=== PATIENT | male | born 1965 | race Caucasian/White ===

== ENCOUNTER → 2018-10-14 08:48 | Outpatient (CLI) | payer OTHER ==
[2015-11-15 12:40] VITALS: BMI 33.0
--- NOTE | ~2018-10-14 | EC ---
PATIENT:CARLENE LOPEZ DATE OF SERVICE: 10/14/18 SEX: M MEDICAL RECORD: [id number] DATE OF : 63 LOCATION:[facility] AGE OF PATIENT: 53 ADMISSION DATE: 10/14/18 REFERRING PHYSICIAN: INTERPRETING PHYSICIAN: CAMPOS GONZALES MD ECHOCARDIOGRAM REPORT ECHO CHARGES 4 ECHO COMPLETE Date: 10/14/18 CLINICAL DIAGNOSIS: H/O CAD/MS/HTN ECHOCARDIOGRAPHIC MEASUREMENTS (adult normal given) AC root (d.<3.7cm) 3.4 cm LV Septum d (<1.2 cm> 1.1 cm Valve Excursion 2.0 cm LV Septum (systole) 1.4 cm Left Atria (s.<4.0cm> 4.5 cm LVPW d(<1.2cm) 1.1 cm RV (d.<2.3cm) 2.4 cm LVPW (sytole) 1.6 cm LV diastole(<5.6CM) 5.6 cm MV E-F(>70mm/sec) cm LV systole 3.4 cm LVOT Diameter 2.1 cm MV exc.(>10mm) cm Est.ejection fraction (50-75%) % DOPPLER: LVIT cm/sec A 55.0 cm/sec E 63.0 cm/sec LA cm/sec RVSP 23.2 mmHg LVOT 74.0 cm/sec AOP1/2T m/s Asc. Ao 107 cm/sec RVOT 41.0 cm/sec RA cm/sec PA 76.0 cm/sec AV Gradient Peak 4.6 mmHg AV Mean 2.3 mmHg AV Area 2.4 cm MV Gradient Peak 3.1 mmHg MV Mean 1.5 mmHg MV Area cm COMMENTS: OP - HC [employer] Sales: 1 SHELLEY SOMERSET Extruder: 3 Dr. Ly TAPE# PACS Pericardial Effusion N DATE OF SERVICE: Adequate 2-D echo, color-flow and spectral Doppler, and M-mode. No LVH. LV internal dimensions are normal. Wall motion is normal. EF is greater than or equal to 55%. Aortic valve is tricuspid. No evidence of stenosis by Doppler interrogation. Left atrium is dilated at 4.5 cm. Mitral valve shows no prolapse. Mild MR. Right-sided chambers are grossly normal. Trace TR. ECHOCARDIOGRAM REPORT [id number] CARLENE LOPEZ Darell DURAND TRANSINT:[id number] Voice Confirmation ID: [id number] DOCUMENT ID: [id number] CAMPOS GONZALES MD CC: [id number] DICTATION DATE: 10/17/18 1342 BALLOON MAKER: 10/17/18 1433 DEP CLI 10/14/18 [place] [id number] [place] [id number]
[~2018-10-14 08:48] MED LIST: GLUCOPHAGE500 MG PO; PLAVIX75 MG PO
== END | disposition home or self-care (01) ==
LOC: D.HCCARDIO 08:48
PROVIDERS: ATTEND Internal Medicine Interventional Cardiology
DX: I25.10 Atherosclerotic heart disease of native coronary artery without angina pectoris (principal)

== ENCOUNTER → 2019-10-16 08:29 | Outpatient (CLI) | payer OTHER ==
[2015-11-15 12:40] VITALS: BMI 33.0
--- NOTE | 2019-10-18 10:52 | EC ---
PATIENT:CARLENE LOPEZ JR DATE OF SERVICE: 10/16/19 SEX: M MEDICAL RECORD: [id number] DATE OF : 63 LOCATION:[facility] AGE OF PATIENT: 54 ADMISSION DATE: 10/16/19 REFERRING PHYSICIAN: INTERPRETING PHYSICIAN: CAMPOS GONZALES MD ECHOCARDIOGRAM REPORT ECHO CHARGES 4 ECHO COMPLETE Date: 10/16/19 CLINICAL DIAGNOSIS: CAD/ASSESS EF AND VALVES ECHOCARDIOGRAPHIC MEASUREMENTS (adult normal given) AC root (d.<3.7cm) 3.5 cm LV Septum d (<1.2 cm> 1.2 cm Valve Excursion 1.8 cm LV Septum (systole) 1.3 cm Left Atria (s.<4.0cm> 3.4 cm LVPW d(<1.2cm) 1.4 cm RV (d.<2.3cm) 3.5 cm LVPW (sytole) 1.7 cm LV diastole(<5.6CM) 6.0 cm MV E-F(>70mm/sec) cm LV systole 4.7 cm LVOT Diameter 2.1 cm MV exc.(>10mm) 1.8 cm Est.ejection fraction (50-75%) % DOPPLER: LVIT cm/sec A 85.0 cm/sec E 72.0 cm/sec LA cm/sec RVSP 24 mmHg LVOT 90 cm/sec AOP1/2T m/s Asc. Ao 121 cm/sec RVOT 68 cm/sec RA cm/sec PA 109 cm/sec AV Gradient Peak 5.836mmHg AV Mean 3.08 mmHg AV Area 2.9 cm MV Gradient Peak 3.22 mmHg MV Mean 1.37 mmHg MV Area cm COMMENTS: Cellular Equipment Installer: 2 KASIE CAIN House Superintendent: 3 Dr. Ly TAPE# PACS Pericardial Effusion N DATE OF SERVICE: Adequate 2D, color flow imaging, spectral Doppler, and M-Mode. Borderline LVH. LV internal dimension is normal. Wall motion is normal. EF greater than or equal to 55%. Aortic valve is tricuspid. No evidence of stenosis by Doppler interrogation. Left atrium is normal at 3.4 cm. Mitral valve shows no prolapse. Trace MR. Right-sided chambers are grossly normal. Trace TR. ECHOCARDIOGRAM REPORT [id number] CARLENE LOPEZ Darell DURAND TRANSINT:[id number] Voice Confirmation ID: [id number] DOCUMENT ID: [id number] CAMPOS GONZALES MD at 1052 CC: [id number] DICTATION DATE: 10/17/19 1443 DIRECTOR OF THERAPY SERVICES: 10/18/19 0054 DEP CLI 10/16/19 [place] [id number] [place] [id number]
== END | disposition home or self-care (01) ==
LOC: D.HCCECHO 08:29
PROVIDERS: ATTEND Internal Medicine Interventional Cardiology
DX: I25.10 Atherosclerotic heart disease of native coronary artery without angina pectoris (principal)